=== PATIENT | female | born 1980 | race Two or more races ===

== ENCOUNTER 2022-09-18 13:34 | Inpatient (IN) | payer OTHER ==
[~2022-09-18] VITALS: Ht 139.7 cm; Wt 61.3 kg
[2022-09-18 15:53] LABS: Albumin 3.8 g/dL (3.4-5.0); BUN/Creatinine Ratio 22.9; Calcium 8.2 mg/dL (8.5-10.1)
[2022-09-18 15:57] LABS: Bilirubin, Total 0.4 mg/dL (0.2-1.0); Total Protein 7.4 g/dL (6.4-8.2)
[2022-09-18 16:01] LABS: INR 1.15 (0.9-1.15); Partial Thromboplastin Time 23.2 sec (24.6-33.4)
[2022-09-18 16:28] LABS: Basophils # (auto) 0 10 ^3/uL (0-0.2); Eosinophils # (auto) 0.1 10 ^3/uL (0-0.8); Mean Corpuscular Hemoglobin 16.7 pg (28.0-32.0); Mean Corpuscular Hgb Conc. 28.7 g/dL (32.0-36.0); Monocytes # (auto) 0.4 10 ^3/uL (0-1.3)
[2022-09-18 16:30] LABS: Basophils % (auto) 0.8 % (0.0-2.0); Eosinophils % (auto) 2.1 % (0.0-7.0); Hematocrit 18.9 % (36.0-46.0); Lymphocytes # (auto) 1.4 10 ^3/uL (0.4-5.4); Lymphocytes % (auto) 29.2 % (10.0-50.0); Mean Corpuscular Volume 58.2 fL (80.0-100.0); Monocytes % (auto) 7.9 % (0.0-12.0); Neutrophils # (auto) 2.8 10 ^3/uL (1.6-8.6); Nucleated Red Blood Cells % 0.1 %; Red Blood Cells 3.25 10^6/uL (4.0-5.20); White Blood Cell 4.7 10^3/uL (4.4-10.8)
[2022-09-18 16:40] LABS: Red Cell Distribution Width 23.8 % (11.8-14.3)
[2022-09-18 16:58] LABS: Hemoglobin 5.4 g/dL (12.2-16.2)
[2022-09-18] MEDS ORDERED: MORPHINE SULFATE INJ 2 MG/ml SYRG IV PRN (17:00)
[2022-09-18] MEDS ORDERED: NITROGLYCERIN 0.4 MG SL TAB SL PRN (17:00)
[2022-09-18] MEDS: FERROUS SULFATE 325mg EC TAB PO SCH (23:23)
[2022-09-18] MEDS: DOCUSATE SOD 100 MG CAP PO SCH (23:23)
[2022-09-18 23:45] VITALS: BP 105/61
[2022-09-19] VITALS (14 sets, daily range): BP systolic 99–114; BP diastolic 57–66
[2022-09-19] MEDS ORDERED: FERR28TA2 PO (06:12)
[2022-09-19 06:28] LABS: Basophils # (auto) 0 10 ^3/uL (0-0.2); Basophils % (auto) 0.9 % (0.0-2.0); Eosinophils # (auto) 0.1 10 ^3/uL (0-0.8); Hemoglobin 8.9 g/dL (12.2-16.2); Neutrophils # (auto) 2.3 10 ^3/uL (1.6-8.6); White Blood Cell 4.2 10^3/uL (4.4-10.8)
[2022-09-19 06:31] LABS: Eosinophils % (auto) 2.1 % (0.0-7.0); Hematocrit 28.2 % (36.0-46.0); Lymphocytes # (auto) 1.3 10 ^3/uL (0.4-5.4); Lymphocytes % (auto) 30.1 % (10.0-50.0); Mean Corpuscular Hemoglobin 21.6 pg (28.0-32.0); Mean Corpuscular Hgb Conc. 31.7 g/dL (32.0-36.0); Mean Corpuscular Volume 68.2 fL (80.0-100.0); Monocytes # (auto) 0.5 10 ^3/uL (0-1.3); Monocytes % (auto) 12.9 % (0.0-12.0); Nucleated Red Blood Cells % 0.2 %; Red Blood Cells 4.13 10^6/uL (4.0-5.20)
[2022-09-19 06:39] LABS: Red Cell Distribution Width 32.8 % (11.8-14.3)
[2022-09-19] MEDS: DOCUSATE SOD 100 MG CAP PO SCH (09:55)
[2022-09-19] MEDS: FERROUS SULFATE 325mg EC TAB PO SCH (09:55)
== END 2022-09-19 14:56 | disposition home or self-care (01) | DRG 761 ==
LOC: ER 13:34 → EEVIPCON 13:34 → OVERFLOW 16:48 → CENTRAL 09-19 00:30 → UNDODISIN 09-19 14:56
PROVIDERS: ADMIT Internal Medicine; ATTEND Internal Medicine
PROC: 30233N1 Transfusion of Nonautologous Red Blood Cells into Peripheral Vein, Percutaneous Approach (ICD-10-PCS; principal; 2022-09-18)
DX: N92.1 Excessive and frequent menstruation with irregular cycle (principal); Z20.822 Contact with and (suspected) exposure to COVID-19; N83.209 Unspecified ovarian cyst, unspecified side; D64.9 Anemia, unspecified
CPT/HCPCS: 36415; 36430; 76856; 80053; 85025; 85610; 85730; 86850; 86900; 86901; 86920; 87081; 87426; 93005; G0378